=== PATIENT | male | born 1995 | race Caucasian/White ===

== ENCOUNTER 2019-09-08 16:41 | Emergency (ER) | payer BC ==
[~2019-09-08] VITALS: Ht 170.2 cm; Wt 81.7 kg
[~2019-09-08 16:41] MED LIST: CODACE30 PO; CRUTCH4 USE; LORA10 PO; MONT10T PO
== END 2019-09-08 18:54 | disposition home or self-care (01) ==
LOC: ER 16:41
DX: S06.0X1A Concussion with loss of consciousness of 30 minutes or less, initial encounter (principal); W22.8XXA Striking against or struck by other objects, initial encounter
CPT/HCPCS: 70450; 99284-25